=== PATIENT | male | born 1945 | race Caucasian/White ===

== ENCOUNTER 2016-12-13 19:56 | Inpatient (IN) | payer MEDICARE, OTHER ==
[~2016-12-13] VITALS: Ht 172.7 cm; Wt 106.0 kg
[2016-12-13 22:34] LABS: BUN/CREATININE RATIO 18 (0-10)
[2016-12-13 23:29] LABS: HEMOGLOBIN 16.8 gm/dl (14.0-17.5); RED BLOOD COUNT 5.51 M/UL (4.20-5.50); WHITE BLOOD COUNT 3.4 K/UL (4.5-11.0)
[2016-12-14 06:55] LABS: HEMOGLOBIN 16.1 gm/dl (14.0-17.5); RED BLOOD COUNT 5.3 M/UL (4.20-5.50)
[2016-12-14 07:32] LABS: WHITE BLOOD COUNT 4.4 K/UL (4.5-11.0)
[2016-12-14 07:34] LABS: BUN/CREATININE RATIO 20 (0-10)
[2016-12-14] MEDS ORDERED: FOSAMAX70 MG PO (09:27)
[2016-12-14] MEDS ORDERED: CARDIZEM CD120 MG PO (09:29)
[2016-12-14] MEDS ORDERED: LORTAB 7.5-3251 EACH PO (09:30)
[2016-12-14] MEDS ORDERED: ISOSORBIDE MONO60 MG PO (09:31)
[2016-12-14] MEDS ORDERED: LOPRESSOR100 MG PO (09:32)
[2016-12-14] MEDS ORDERED: PRAVACHOL80 MG PO (09:32)
[2016-12-15 06:30] LABS: HEMOGLOBIN 17.9 gm/dl (14.0-17.5); RED BLOOD COUNT 5.83 M/UL (4.20-5.50); WHITE BLOOD COUNT 3.3 K/UL (4.5-11.0)
[2016-12-15 18:58] LABS: HEMOGLOBIN 17.3 gm/dl (14.0-17.5); RED BLOOD COUNT 5.71 M/UL (4.20-5.50); WHITE BLOOD COUNT 4.2 K/UL (4.5-11.0)
[2016-12-16 07:01] LABS: RED BLOOD COUNT 5.49 M/UL (4.20-5.50)
[2016-12-16 07:05] LABS: WHITE BLOOD COUNT 5.3 K/UL (4.5-11.0)
[2016-12-16 10:43] LABS: HEMOGLOBIN 16.3 gm/dl (14.0-17.5)
[2016-12-17 06:13] LABS: HEMOGLOBIN 15.7 gm/dl (14.0-17.5); RED BLOOD COUNT 5.18 M/UL (4.20-5.50)
[2016-12-18 04:45] LABS: HEMOGLOBIN 16.4 gm/dl (14.0-17.5); RED BLOOD COUNT 5.38 M/UL (4.20-5.50)
[2016-12-18 04:56] LABS: WHITE BLOOD COUNT 6.6 K/UL (4.5-11.0)
[2016-12-18 08:06] LABS: WHITE BLOOD COUNT 4.5 K/UL (4.5-11.0)
[2016-12-19 04:12] LABS: HEMOGLOBIN 16.8 gm/dl (14.0-17.5); RED BLOOD COUNT 5.53 M/UL (4.20-5.50)
[2016-12-19 04:54] LABS: WHITE BLOOD COUNT 11.5 K/UL (4.5-11.0)
[2016-12-19 11:22] LABS: CRYPTOCOCCUS NEOFORMANS/GATTII Not Detected (Negative); CYTOMEGALOVIRUS Not Detected (Negative); ENTEROVIRUS Not Detected (Negative); ESCHERICHIA COLI K1 Not Detected (Negative); HAEMOPHILUS INFLUENZAE Not Detected (Negative); HERPES SIMPLEX VIRUS 1 Not Detected (Negative); HERPES SIMPLEX VIRUS 2 Not Detected (Negative); HUMAN HERPESVIRUS 6 Not Detected (Negative); HUMAN PARECHOVIRUS Not Detected (Negative); LISTERIA MONOCYTOGENES Not Detected (Negative); NEISERRIA MENINGITIDIS Not Detected (Negative); STREPTOCOCCUS AGALACTIAE Not Detected (Negative); STREPTOCOCCUS PNEUMONIAE Not Detected (Negative); VARICELLA ZOSTER VIRUS Not Detected (Negative)
[2016-12-19 11:46] LABS: GLUCOSE,CSF 68 mg/dL (50-80); TOTAL PROTEIN,CSF 63 mg/dL (20-45)
[2016-12-19 15:39] LABS: HEMOGLOBIN 15.2 gm/dl (14.0-17.5); RED BLOOD COUNT 4.98 M/UL (4.20-5.50)
[2016-12-19 20:43] LABS: HEMOGLOBIN 12.6 gm/dl (14.0-17.5); RED BLOOD COUNT 4.09 M/UL (4.20-5.50); WHITE BLOOD COUNT 12.5 K/UL (4.5-11.0)
[2016-12-21 02:27] LABS: ACINETOBACTER BAUMANNII Not Detected (Negative); CANDIDA ALBICANS DETECTED (Negative); CANDIDA KRUSEI Not Detected (Negative); CANDIDA TROPICALIS Not Detected (Negative); ENTEROCOCCUS Not Detected (Negative); ESCHERICHIA COLI Not Detected (Negative); HAEMOPHILUS INFLUENZAE Not Detected (Negative); KLEBSIELLA OXYTOCA Not Detected (Negative); KLEBSIELLA PNEUMONIAE Not Detected (Negative); KPC-CARBAPENEM-RESISTANCE GENE Not Detected (Negative); PROTEUS Not Detected (Negative); PSEUDOMONAS AERUGINOSA Not Detected (Negative); SERRATIA MARCESANS Not Detected (Negative); STAPHYLOCOCCUS Not Detected (Negative); STAPHYLOCOCCUS AUREUS Not Detected (Negative); STREP AGALACTIAE (GROUP B) Not Detected (Negative); STREP PYOGENES (GROUP A) Not Detected (Negative); STREPTOCOCCUS Not Detected (Negative); mecA (METHICILLIN RESIST GENE Not Detected (Negative); vanA/B (VANCOMYCIN RESIST GENE Not Detected (Negative)
== END 2016-12-20 01:00 | disposition short-term general hospital (02) | DRG 682 ==
LOC: ER1 19:56 → ZEROF 22:02 → M/S 22:02 → CCU 12-17 22:52
PROVIDERS: Internal Medicine; Internal Medicine Hematology & Oncology; Internal Medicine Nephrology; Physician Assistant; ADMIT Family Medicine
PROC: 05HM33Z Insertion of Infusion Device into Right Internal Jugular Vein, Percutaneous Approach (ICD-10-PCS; principal; 2016-12-19)
PROC: B543ZZA Ultrasonography of Right Jugular Veins, Guidance (ICD-10-PCS; 2016-12-19)
PROC: 5A1945Z Respiratory Ventilation, 24-96 Consecutive Hours (ICD-10-PCS; 2016-12-19)
PROC: 0BH17EZ Insertion of Endotracheal Airway into Trachea, Via Natural or Artificial Opening (ICD-10-PCS; 2016-12-19)
PROC: 009U3ZX Drainage of Spinal Canal, Percutaneous Approach, Diagnostic (ICD-10-PCS; 2016-12-19)
PROC: 30233N1 Transfusion of Nonautologous Red Blood Cells into Peripheral Vein, Percutaneous Approach (ICD-10-PCS; 2016-12-19)
DX: N17.9 Acute kidney failure, unspecified (principal); G93.40 Encephalopathy, unspecified; R65.11 Systemic inflammatory response syndrome (SIRS) of non-infectious origin with acute organ dysfunction; J96.00 Acute respiratory failure, unspecified whether with hypoxia or hypercapnia; K85.90 Acute pancreatitis without necrosis or infection, unspecified; E87.1 Hypo-osmolality and hyponatremia; E87.2 Acidosis; M62.82 Rhabdomyolysis; I50.22 Chronic systolic (congestive) heart failure; I42.9 Cardiomyopathy, unspecified; R93.1 Abnormal findings on diagnostic imaging of heart and coronary circulation; K57.90 Diverticulosis of intestine, part unspecified, without perforation or abscess without bleeding; N20.0 Calculus of kidney; R74.8 Abnormal levels of other serum enzymes; R74.0 Nonspecific elevation of levels of transaminase and lactic acid dehydrogenase [LDH]; D69.6 Thrombocytopenia, unspecified; K76.0 Fatty (change of) liver, not elsewhere classified; I25.10 Atherosclerotic heart disease of native coronary artery without angina pectoris; Z95.1 Presence of aortocoronary bypass graft; I11.0 Hypertensive heart disease with heart failure; R19.7 Diarrhea, unspecified; R19.5 Other fecal abnormalities; E11.9 Type 2 diabetes mellitus without complications; E78.5 Hyperlipidemia, unspecified; Z79.899 Other long term (current) drug therapy; Z79.82 Long term (current) use of aspirin; K75.9 Inflammatory liver disease, unspecified; E53.8 Deficiency of other specified B group vitamins; E55.9 Vitamin D deficiency, unspecified; E66.9 Obesity, unspecified; Z68.32 Body mass index [BMI] 32.0-32.9, adult; Z82.49 Family history of ischemic heart disease and other diseases of the circulatory system; Z96.652 Presence of left artificial knee joint; Z98.890 Other specified postprocedural states; R10.9 Unspecified abdominal pain; R80.9 Proteinuria, unspecified; Z51.89 Encounter for other specified aftercare
CPT/HCPCS: ECHO; 31500; 36415; 36600; 70450; 70551; 71010; 71250; 80048; 80053; 80074; 80202; 80307; 81001; 82009; 82140; 82150; 82272; 82436; 82550; 82553; 82570; 82607; 82746; 82803; 82945; 82962; 83010; 83036; 83605; 83615; 83690; 83735; 83874; 83880; 84100; 84133; 84156; 84157; 84300; 84439; 84443; 84484; 85007; 85025; 85027; 85610; 85730; 86160; 86334; 86592; 86618; 86666; 86850; 86900; 86901; 86920; 86927; 87015; 87040; 87045; 87046; 87070; 87077; 87086; 87116; 87150; 87177; 87205; 87483; 89050; 89051; 89055; 92610; 93005; 93306; 94002; 94640; 94664; 96361; 96365; 96367; 96375; 99285; C1751; C9113; G0480; J0290; J0696; J1335; J1956; J2310; J2543; J2920; J2930; J3370; J3411; J3430; J3475; J7030; J7050; J7070; P9016; P9017